=== PATIENT | female | born 1955 | race Caucasian/White ===

== ENCOUNTER 2017-08-01 07:17 | Day surgery (SDC) | payer OTHER ==
[2017-08-01] MEDS: FAMOTIDINE 20 MG TAB PO (06:00)
[2017-08-01] MEDS: DIPHENHYDRAMINE 50 MG CAP PO (06:00)
[2017-08-01] MEDS: DIAZEPAM 5 MG TAB PO (06:00)
[2017-08-01] MEDS: SOD CHLORIDE 0.45% 1,000 ML IV (06:00)
[2017-08-01 08:21] LABS: ADD MAN DIFF? NO
[2017-08-01 08:25] LABS: BASOPHILS % 0.4 % (0.0-2.0); EOSINOPHILS # 0.3 10^3/ul (0.0-0.5); EOSINOPHILS % 3.4 % (0.0-7.0); HEMATOCRIT 43.4 % (37.0-47.0); HEMOGLOBIN 14.7 g/dl (12.0-16.0); LYMPHOCYTES # 2.5 10^3/ul (0.8-2.9); LYMPHOCYTES % 34.9 % (15.0-51.0); MEAN CORPUSCULAR HEMOGLOBIN 28.8 pg (29.0-33.0); MEAN CORPUSCULAR HGB CONC 33.9 g/dl (32.0-37.0); MEAN CORPUSCULAR VOLUME 84.9 fl (82.0-101.0); MEAN PLATELET VOLUME 11.1 fl (7.4-10.4); MONOCYTE # 0.7 10^3/ul (0.3-0.9); MONOCYTES % 8.9 % (0.0-11.0); NEUTROPHIL # 3.8 10^3/ul (1.6-7.5); NEUTROPHILS % 52.1 % (39.0-77.0); PLATELET COUNT 201 10^3/UL (140-415); RED BLOOD COUNT 5.11 10^6/ul (4.20-5.40); RED CELL DISTRIBUTION WIDTH 13.2 % (11.5-14.5)
[2017-08-01 08:25] LABS: WHITE BLOOD COUNT 7.3 10^3/ul (4.8-10.8)
[2017-08-01 08:47] LABS: ANION GAP 11 (8-16); CARBON DIOXIDE 23 mmol/L (21-31); CHLORIDE 113 mmol/L (97-110); CHOL/HDL RATIO 2.7 RATIO; CHOLESTEROL 159 mg/dl (100-200); GLUCOSE 95 mg/dl (70-220); HDL CHOLESTEROL 57 mg/dl (35-98); LDL CHOLESTEROL,CALCULATED 64 mg/dl; SODIUM 143 mmol/L (135-144); TRIGLYCERIDES 188 mg/dl (0-149)
[2017-08-01 08:48] LABS: BLOOD UREA NITROGEN 24 mg/dl (7-20); CALCIUM 9.5 mg/dl (8.4-10.2); CREATININE 0.77 mg/dl (0.44-1.00)
[2017-08-01] MEDS ORDERED: MIDAZOLAM 1 MG/ML 2 ML INJ (08:50)
[2017-08-01] MEDS ORDERED: HEPARIN 1000 UNITS/ML 10 ML INJ (08:50)
[2017-08-01] MEDS ORDERED: LIDOCAINE 1% (MDV) 20 ML INJ (08:50)
[2017-08-01] MEDS ORDERED: IODIXANOL LOCM 100 ML BTL (08:50)
[2017-08-01] MEDS ORDERED: FENTAnyl 50 MCG/ML VIAL (08:51)
[2017-08-01] MEDS ORDERED: SOD CHLORIDE 0.9% 500 ML (08:51)
[2017-08-01] MEDS ORDERED: VERAPAMIL 5 MG INJ (08:51)
[2017-08-01] MEDS ORDERED: NITROGLYCERIN (IC) 100 MCG/ML INJ (08:51)
[2017-08-01 09:00] LABS: INR 0.98; PROTIME 13.1 Sec (11.9-14.9)
[2017-08-01 09:01] LABS: PARTIAL THROMBOPLASTIN TIME 32.3 Sec (25.0-35.0)
[2017-08-01] MEDS ORDERED: CLOPIDOGREL 300 MG TAB ×2 (10:05→10:15)
[2017-08-01] MEDS ORDERED: ASPIRIN 325 MG TAB (10:14)
[2017-08-01] MEDS: SOD CHLORIDE 0.9% 1,000 ML IV (10:27)
[2017-08-01] MEDS ORDERED: ACETAMINOPHEN 325 MG TAB PO (10:30)
[2017-08-01] MEDS ORDERED: ZOLPIDEM 5 MG TAB PO (10:30)
[2017-08-01] MEDS ORDERED: OXYCODONE/ACETAMINOPHEN (5/325) TAB PO (10:30)
[2017-08-01] MEDS ORDERED: DIAZEPAM 2 MG TAB PO (10:30)
[2017-08-01] MEDS ORDERED: CLOPIDOGREL 75 MG TAB PO (16:30)
[2017-08-01] MEDS ORDERED: NITROGLYCERIN (SL) 0.4 MG TAB SL (16:30)
[2017-08-01] MEDS: EZETIMIBE 10 MG TAB PO (21:29)
[2017-08-01] MEDS: ATORVASTATIN 20 MG TAB PO (21:29)
[2017-08-02 05:50] LABS: ADD MAN DIFF? NO; BASOPHILS % 0.3 % (0.0-2.0); EOSINOPHILS # 0.3 10^3/ul (0.0-0.5); EOSINOPHILS % 4.1 % (0.0-7.0); HEMATOCRIT 43.5 % (37.0-47.0); HEMOGLOBIN 14.4 g/dl (12.0-16.0); LYMPHOCYTES % 26.2 % (15.0-51.0); MEAN CORPUSCULAR HEMOGLOBIN 28.3 pg (29.0-33.0); MEAN CORPUSCULAR HGB CONC 33.1 g/dl (32.0-37.0); MEAN CORPUSCULAR VOLUME 85.5 fl (82.0-101.0); MONOCYTE # 0.7 10^3/ul (0.3-0.9); MONOCYTES % 8.3 % (0.0-11.0); NEUTROPHIL # 4.7 10^3/ul (1.6-7.5); NEUTROPHILS % 60.8 % (39.0-77.0); PLATELET COUNT 188 10^3/UL (140-415); RED BLOOD COUNT 5.09 10^6/ul (4.20-5.40); RED CELL DISTRIBUTION WIDTH 13.2 % (11.5-14.5)
[2017-08-02 05:50] LABS: WHITE BLOOD COUNT 7.8 10^3/ul (4.8-10.8)
[2017-08-02] MEDS: SOD CHLORIDE 0.45% 1,000 ML IV (06:00)
[2017-08-02 06:16] LABS: ANION GAP 11 (8-16); BLOOD UREA NITROGEN 20 mg/dl (7-20); CALCIUM 9.3 mg/dl (8.4-10.2); CARBON DIOXIDE 26 mmol/L (21-31); CHLORIDE 107 mmol/L (97-110); CREATININE 0.73 mg/dl (0.44-1.00); GLUCOSE 93 mg/dl (70-220); POTASSIUM 4.1 mmol/L (3.5-5.1); SODIUM 140 mmol/L (135-144)
[2017-08-02] MEDS: ASPIRIN 81 MG TAB PO (08:37)
[2017-08-02] MEDS: ISOSORBIDE MONONITRATE(SR)30 MG TAB PO (08:37)
[2017-08-02] MEDS: FENOFIBRATE 145 MG TAB PO (08:37)
[2017-08-02] MEDS: LOSARTAN 50 MG TAB PO (08:37)
[2017-08-02] MEDS: PANTOPRAZOLE (EC) 40 MG TAB PO (08:38)
[2017-08-02] MEDS ORDERED: NON-FORMULARY/PATIENT OWN MED (Fenofibrate, Micronized* (Fenofibrate*) 160 MG) PO (09:00)
[2017-08-02] MEDS ORDERED: SULINDAC 150 MG TAB PO (09:00)
[2017-08-02] MEDS ORDERED: CLOPIDOGREL 75 MG TAB PO (16:30)
== END 2017-08-02 12:07 | disposition home or self-care (01) ==
LOC: SDS 07:17 → ICU 12:59
DX: I25.10 Atherosclerotic heart disease of native coronary artery without angina pectoris (principal); I10 Essential (primary) hypertension; E78.5 Hyperlipidemia, unspecified; R94.39 Abnormal result of other cardiovascular function study
CPT/HCPCS: 71045; 80048; 80061; 85025; 85610; 85730; 93005; 93458